=== PATIENT | female | born 1995 | race Hispanic/Latino ===

== ENCOUNTER 2025-03-29 09:04 | Emergency (ER) | payer OTHER ==
[~2025-03-29] VITALS: Ht 154.9 cm; Wt 86.1 kg
[2025-03-29] MEDS ORDERED: SYMBICORT 16010.2 GM INH (09:25)
[2025-03-29] MEDS ORDERED: ALBUTEROL2.5 MG/3 M INH (09:25)
[2025-03-29] MEDS ORDERED: ALBUTEROL/IPRATROPIUM 3 ML NEB INH ONE (09:45)
[2025-03-29] MEDS ORDERED: predniSONE 20 MG TAB PO ONE (09:45)
[2025-03-29] MEDS ORDERED: PREDNISONE20 MG PO (11:10)
[2025-03-29] MEDS ORDERED: IPRAT-ALBUT 0.5-3 ML INH (11:10)
[2025-03-29] MEDS ORDERED: VENTOLIN HFA18 GM INH (11:10)
[2025-03-29] MEDS ORDERED: ZITHROMAX250 MG PO (11:11)
[2025-03-29 11:40] VITALS: BP 102/73
[2025-03-29] MEDS ORDERED: AZITHROMYCIN 250 MG TAB PO ONE (11:45)
== END 2025-03-29 11:40 | disposition home or self-care (01) ==
LOC: ED 09:04
DX: J45.901 Unspecified asthma with (acute) exacerbation (principal); Z79.51 Long term (current) use of inhaled steroids
CPT/HCPCS: 71046; 94640; 94667; 99285-25; J7512